=== PATIENT | male | born 1985 | race African-American/Black ===

== ENCOUNTER 2024-05-27 00:30 | Inpatient (IN) | payer OTHER ==
[2024-05-27] MEDS ORDERED: FAMOTIDINE 20 MG/50 ML IVPB 20 MG/50 ML MG IVPB ONE (02:02)
[2024-05-27] MEDS ORDERED: ONDANSETRON 4 MG/2 ML VIAL ONE (02:02)
[2024-05-27] MEDS ORDERED: ACETAMINOPHEN INJECTION 100 ML ONE (02:02)
[2024-05-27 02:04] LABS: HEMATOCRIT 45.2 % (35.4-49); HEMOGLOBIN 14.5 GM/dL (11.7-16.9); MCH 29.5 pg (25.7-33.7); MEAN PLT VOLUME 7.7 fl (7.5-11.1); PLATELET COUNT 228 10^3/uL (134-434); RBC 4.91 M/mm3 (4.00-5.60); RDW 13.6 % (11.9-15.9); WHITE BLOOD COUNT 12.1 K/mm3 (4.0-10.0)
[2024-05-27] MEDS: ACETAMINOPHEN 1000 MG/100 ML BAG IVPB ONE (02:05)
[2024-05-27] MEDS: SODIUM CHLORIDE 0.9% 500 ML INFUS.BAG IV ONE ×2 (02:05→06:52)
[2024-05-27] MEDS: ONDANSETRON 4 MG/2 ML VIAL IVPUSH ONE (02:05)
[2024-05-27 02:13] LABS: INR 1.13 (0.83-1.09); PROTHROMBIN TIME (PATIENT) 12.9 SEC (9.7-13.0)
[2024-05-27 02:15] LABS: ACTIVATED PTT 31.1 SECONDS (25.2-36.5)
[2024-05-27] MEDS: FAMOTIDINE 20 MG/50 ML IVPB 20 MG/50 ML MG IVPB ONE (02:20)
[2024-05-27 02:23] LABS: CALCIUM 9.5 mg/dL (8.5-10.1)
[2024-05-27 02:24] LABS: BLOOD UREA NITROGEN 17.9 mg/dL (7-18)
[2024-05-27 02:27] LABS: CREATININE 0.9 mg/dL (0.55-1.3)
[2024-05-27 02:29] LABS: BILIRUBIN,TOTAL 0.4 mg/dL (0.2-1)
[2024-05-27] MEDS ORDERED: MIDAZOLAM HCL 2 MG/2 ML SINGLE DOSE VIAL ONE (02:38)
[2024-05-27] MEDS: MIDAZOLAM HCL 2 MG/2 ML SINGLE DOSE VIAL IVPUSH ONE ×2 (02:40→11:14)
[2024-05-27 02:47] LABS: ALBUMIN 4.2 g/dl (3.4-5.0)
[2024-05-27 04:08] LABS: ANISOCYTOSIS 1+; MACROCYTOSIS 1+
[2024-05-27] MEDS: LORazepam 2 MG/ML SDV VIAL IM PRN (11:00)
[2024-05-27] MEDS ORDERED: CITALOPRAM HYDROBROMIDE 20 MG TABLET PO SCH (11:15)
[2024-05-27] MEDS: hydrOXYzine HCL 100 MG/2 ML VIAL IM ONE (11:40)
[2024-05-27] MEDS ORDERED: ENOXAPARIN NA (PORCINE) 40 MG/0.4 ML DISP.SYRIN SQ ONE (11:41)
[2024-05-27] MEDS ORDERED: traZODone HCL 50 MG TABLET (FP) PO SCH (14:00)
[2024-05-27] MEDS: ENOXAPARIN NA (PORCINE) 40 MG/0.4 ML DISP.SYRIN SQ SCH (15:29)
[2024-05-27 17:48] VITALS: BMI 31.0
[2024-05-27] MEDS: SODIUM CHLORIDE 1,000 ML IV SCH (20:23)
[2024-05-27] MEDS: BACLOFEN 10 MG TABLET (FP) PO SCH (21:28)
[2024-05-27] MEDS ORDERED: BACLOFEN 10 MG TABLET (FP) PO SCH (22:00)
[2024-05-28 09:19] LABS: HEMATOCRIT 39.3 % (35.4-49); HEMOGLOBIN 13.5 GM/dL (11.7-16.9); MCH 31.3 pg (25.7-33.7); MCHC 34.4 g/dl (32.0-35.9); MEAN CELL VOLUME 91.1 fl (80-96); MEAN PLT VOLUME 8.3 fl (7.5-11.1); PLATELET COUNT 190 10^3/uL (134-434); POTASSIUM 3.4 mmol/L (3.5-5.1); RBC 4.31 M/mm3 (4.00-5.60); RDW 13.4 % (11.9-15.9); WHITE BLOOD COUNT 4.3 K/mm3 (4.0-10.0)
[2024-05-28 09:25] LABS: ALBUMIN 3.8 g/dl (3.4-5.0); BLOOD UREA NITROGEN 10.3 mg/dL (7-18); CALCIUM 9.3 mg/dL (8.5-10.1)
[2024-05-28 09:26] LABS: MAGNESIUM 2.1 mg/dL (1.8-2.4)
[2024-05-28 09:27] LABS: CREATININE 0.8 mg/dL (0.55-1.3)
[2024-05-28 09:28] LABS: PHOSPHOROUS 2.4 mg/dL (2.5-4.9)
[2024-05-28 09:29] LABS: BILIRUBIN,TOTAL 0.3 mg/dL (0.2-1); TOT PROT 7.4 g/dl (6.4-8.2)
[2024-05-28] MEDS: BACLOFEN 10 MG TABLET (FP) PO SCH (10:28)
[2024-05-28] MEDS: PANTOPRAZOLE SODIUM 40 MG VIAL IVPUSH SCH (12:44)
[2024-05-28] MEDS: LORazepam 1 MG TABLET PO PRN (21:38)
[2024-05-28] MEDS: ONDANSETRON 4 MG TABLET PO PRN (21:39)
[2024-05-28] MEDS ORDERED: DOCUSATE SODIUM 100 MG CAPSULE (FP) PO SCH (22:00)
[2024-05-28] MEDS: LATANOPROST 0.005% OPHTH SOLN 2.5ML BOTTLE OU SCH (22:27)
[2024-05-29] MEDS: METOCLOPRAMIDE HCL INJECTION 10 MG/2 ML VIAL IVPUSH ONE (07:52)
[2024-05-29 08:32] LABS: BASO % 0.4 % (0-2.0); HEMATOCRIT 39.9 % (35.4-49); HEMOGLOBIN 13.3 GM/dL (11.7-16.9); MCH 30.3 pg (25.7-33.7); MCHC 33.2 g/dl (32.0-35.9); MEAN CELL VOLUME 91.3 fl (80-96); MEAN PLT VOLUME 7.6 fl (7.5-11.1); MONO % 10.6 % (3.8-10.2); PLATELET COUNT 201 10^3/uL (134-434); RBC 4.37 M/mm3 (4.00-5.60); RDW 13.5 % (11.9-15.9)
[2024-05-29 08:56] LABS: POTASSIUM 3.7 mmol/L (3.5-5.1)
[2024-05-29 09:01] LABS: CALCIUM 9.3 mg/dL (8.5-10.1)
[2024-05-29 09:02] LABS: ALBUMIN 3.8 g/dl (3.4-5.0); BLOOD UREA NITROGEN 10.4 mg/dL (7-18); MAGNESIUM 2.1 mg/dL (1.8-2.4)
[2024-05-29 09:06] LABS: BILIRUBIN,TOTAL 0.5 mg/dL (0.2-1); CREATININE 0.7 mg/dL (0.55-1.3)
[2024-05-29] MEDS: CALCIUM 250MG/VIT-D 125 UNITS 1 COMBO TABLET PO SCH (10:04)
[2024-05-29] MEDS: POLYETHYLENE GLYCOL (HEALTHYLAX) 3350 17 GM PACKET PO SCH (14:04)
[2024-05-29 14:15] VITALS: RESP 18
[2024-05-29 18:35] VITALS: TEMP 98.2
[2024-05-29 23:10] VITALS: BP 142/109; PULSE 66
[2024-05-30 08:28] LABS: BASO % 0.7 % (0-2.0); EOS % 1.8 % (0-4.5); HEMATOCRIT 43.3 % (35.4-49); HEMOGLOBIN 14.1 GM/dL (11.7-16.9); LYMPH % 21.8 % (8-40); MCHC 32.6 g/dl (32.0-35.9); MEAN CELL VOLUME 92.1 fl (80-96); MEAN PLT VOLUME 8.3 fl (7.5-11.1); MONO % 8.3 % (3.8-10.2); NEUT % 67.4 % (42.8-82.8); PLATELET COUNT 230 10^3/uL (134-434); RDW 12.7 % (11.9-15.9); WHITE BLOOD COUNT 5.5 K/mm3 (4.0-10.0)
[2024-05-30 08:57] LABS: POTASSIUM 3.8 mmol/L (3.5-5.1)
[2024-05-30 09:00] LABS: CALCIUM 9.3 mg/dL (8.5-10.1)
[2024-05-30 09:01] LABS: ALBUMIN 3.7 g/dl (3.4-5.0); BLOOD UREA NITROGEN 11.4 mg/dL (7-18); MAGNESIUM 2.2 mg/dL (1.8-2.4)
[2024-05-30 09:04] LABS: CREATININE 0.7 mg/dL (0.55-1.3)
[2024-05-30 09:05] LABS: BILIRUBIN,TOTAL 0.5 mg/dL (0.2-1)
[2024-05-30 09:06] LABS: TOT PROT 7.2 g/dl (6.4-8.2)
== END 2024-05-30 10:15 | disposition home or self-care (01) | DRG 254 ==
LOC: JER 00:30 → JERBED 07:25 → INTOOBSV 07:26 → UNDOADMOB 07:26 → OBSVTOIN 08:39 → J7W 13:43
PROVIDERS: ADMIT Internal Medicine
DX: K59.09 Other constipation (principal); G40.909 Epilepsy, unspecified, not intractable, without status epilepticus; G80.0 Spastic quadriplegic cerebral palsy; Q02 Microcephaly; D72.829 Elevated white blood cell count, unspecified; F89 Unspecified disorder of psychological development
CPT/HCPCS: 36415; 71045-TC-FY; 74176-TC; 74177-TC; 80048; 80053; 82728; 83540; 83550; 83605; 83690; 83735; 84100; 84484; 85025; 85027; 85610; 85730; 86850; 86900; 86901; 93005; 93010; 99285-25; G0378; J0131; J0475